=== PATIENT | female | born 1940 | race Caucasian/White ===

== ENCOUNTER 2016-11-11 11:06 | Outpatient (CLI) | payer MEDICARE, OTHER ==
[2015-12-03 08:42] VITALS: BP 122/78
--- NOTE | 2016-11-11 14:24 | Diagnostic Imaging Report ---
MAKAYLA MORSE [facility] [address] [facility] [address] [place], [place]. [address] Report Submission Date: Nov 11, 2016 12:02:44 PM CDT Patient Study Name: PATRICIA GARG Date: Nov 11, 2016 11:20:10 AM CDT Modality Type: CT\SR Gender: F Description: CT BRAIN W/O CONTRAST : 40 Institution: [facility] Physician: MAKAYLA MORSE Examination: CT head without contrast History: Increased confusion Comparison exam: None available Technique: Noncontrast head CT protocol. Findings: Ventricles and sulci are prominent. Cerebrocerebellar parenchyma demonstrates periventricular low attenuation consistent with small vessel disease. Extensive regions of low attenuation extending into the high left parietal lobe. No evidence for parenchymal hemorrhage. No evidence for mass or mass effect. No midline shift. No extra axial fluid collections. Partial visualization of the paranasal sinuses, mastoid air cells, orbits, skull and scalp without gross regularity. Impression: Advanced age related changes. No acute appearing parenchymal process by CT sensitivity. No hemorrhage. If no prior CT brain examinations are available to confirm stability the presumed age related parenchymal processes, MRI recommended to further evaluate. Electronically signed on Nov 11, 2016 12:02:44 PM CDT by: Willian TSE
== END 2016-11-11 11:07 ==
LOC: RAD 11:06
PROVIDERS: ATTEND Family Medicine
DX: R41.0 Disorientation, unspecified (principal)
CPT/HCPCS: 70450

== ENCOUNTER 2017-06-17 09:45 | Emergency (ER) | payer MEDICARE, OTHER ==
[2017-06-17 10:42] LABS: BASOPHILS % 0.5 (0.0-1.5); EOSINOPHILS % 2.7 % (0.0-6.8); MEAN CORPUSCULAR VOLUME 88.9 fl (80.0-100.0); MONOCYTES % 6.1 % (0.0-11.0); NEUTROPHILS # 3.3 # k/uL (1.4-7.7)
[2017-06-17 10:56] VITALS: BP 111/75
[2017-06-17 11:55] LABS: eGFR (African) > 60; eGFR (Non-African) > 60
--- NOTE | 2017-06-17 12:17 | ED Physician Documentation ---
General Adult - HISTORIAN Historian: patient - HPI Stated Complaint: R hip pain Chief Complaint: General Adult Further Comments: yes (76 year old female patient sent in from [facility] for evaluation, staff reports patient will not bear weight or walk on right hip; fall last week. Report poor po intake, increased confusion.) - ROS CONST: weakness EYES/ENT: none CVS/RESP: none GI/: none MS/SKIN/LYMPH: other (hip pain) NEURO/PSYCH: other (Patient is poor medical collector due to dementia. ) - PAST HX Past History: other (vascular dementia, COPD, difficulty walking/gait disturbance, seizures) Other History: CVA Allergies/Adverse Reactions: Allergies Allergy/AdvReac Type Severity Reaction Status Date / Time acetaminophen Allergy Verified 06/17/17 10:56 codeine Allergy Verified 06/17/17 10:56 Penicillins Allergy Verified 11/21/15 14:26 aspirin AdvReac Nausea/Vomi Verified 11/21/15 14:26 ting lorazepam [From Ativan] AdvReac Hallucinati Verified 11/21/15 14:26 ons Home Medications: Ambulatory Orders Medication Instructions Recorded Atenolol 50 mg PO D 11/21/15 Clopidogrel Bisulfate [Plavix] 75 mg PO QD 11/21/15 Levetiracetam [Keppra] 1 tab PO BID 11/21/15 Lovastatin 40 mg PO D 11/21/15 Mirtazapine [Remeron] 7.5 mg PO DAILY 06/17/17 - SOCIAL HX Smoking History: non-smoker - FAMILY HX Family History: No - VITAL SIGNS Vital Signs: Vital Signs Temp Pulse Resp BP Pulse Ox 85 17 111/75 91 L 06/17/17 12:00 06/17/17 09:45 06/17/17 09:45 06/17/17 12:00 - REVIEWED ASSESSMENTS Nursing Assessment Reviewed: Yes Vitals Reviewed: Yes Progress - Progress Progress: Call from Dr Kelly before patient arrived. Patient has urine cytology pending for hematuria. Patient is currently on levaquin. On arrival, patient c/o right hip pain, states she got up this morning and walked to breakfast. [facility] staff reports patient is a full assist and out of bed with jahaira lift. Patient sleeping on stretcher during most of ER stay. Easily awakens, cooperative and pleasant. Work up completed; call to Dr Kelly updated on lab and xray. No additional orders, continue all medications, return to [facility]. ED Results Lab/Radiology - Lab Results Lab Results: Lab Results 06/17/17 06/17/17 10:30 10:30 WBC 6.60 K/ul K/ul (4.00-12.00) RBC 4.87 M/ul M/ul (3.90-5.20) Hgb 13.2 g/dL g/dL (12.0-16.0) Hct 43.3 % % (34.5-46.5) MCV 88.9 fl fl (80.0-100.0) MCH 27.0 pg L pg (28.0-34.0) MCHC 30.4 g/dL g/dL (30.0-36.0) RDW 14.6 % H % (11.3-14.3) Plt Count 255 K/mm3 K/mm3 (130-400) Neut % (Auto) 50.5 % % (39.0-79.0) Lymph % (Auto) 37.4 % % (16.0-50.0) [place] % (Auto) 6.1 % % (0.0-11.0) Eos % (Auto) 2.7 % % (0.0-6.8) Baso % (Auto) 0.5 (0.0-1.5) Neut # (Auto) 3.3 # k/uL # k/uL (1.4-7.7) Lymph # (Auto) 2.5 # k/uL # k/uL (0.6-4.0) [place] # (Auto) 0.4 # k/uL # k/uL (0.0-0.9) Eos # (Auto) 0.2 # k/uL # k/uL (0.0-0.6) Baso # (Auto) 0.0 # k/uL # k/uL (0.0-0.5) Reactive Lymphs % 2.8 % % (0.0-5.0) Reactive Lymphs # 0.2 # k/uL # k/uL (0.0-0.8) Sodium 136 mmol/L mmol/L (136-145) Potassium 3.9 mmol/L mmol/L (3.5-5.1) Chloride 100 mmol/L mmol/L (98-107) Carbon Dioxide 27 mmol/L mmol/L (22-30) BUN 19 mg/dL H mg/dL (7-17) Creatinine 0.90 mg/dL mg/dL (0.52-1.04) Estimated Creat Clear 56 Est GFR ( Amer) > 60 (60 - ) Est GFR (Non-Af Amer) > 60 (60 - ) Glucose 84 mg/dL mg/dL (74-106) Calcium 8.8 mg/dL mg/dL (8.4-10.2) Total Bilirubin 0.7 mg/dL mg/dL (0.2-1.3) AST 32 U/L U/L (15-46) ALT 38 U/L U/L (13-69) Alkaline Phosphatase 80 U/L U/L (38-126) Total Protein 6.7 g/dL g/dL (6.3-8.2) Albumin 3.4 g/dL L g/dL (3.5-5.0) - Orders Orders: ED Orders Category Date Time Status Continuous EKG monitoring Q30M Care 06/17/17 09:59 Active Continuous Pulse Oximetry Q30M Care 06/17/17 09:[address] IV Lock 1T Care 06/17/17 09:59 Active RT HIP 2VIEW COMPLETE [RAD] Stat Exams 06/17/17 Taken CBC/PLATELET/DIFF Stat Lab 06/17/17 10:30 Completed CMP Stat Lab 06/17/17 10:30 Completed UA W/MICRO IF INDICATED Stat Lab 06/17/17 09:59 Ordered General Adult Physical Exam - PHYSICAL EXAM GENERAL APPEARANCE: [id number] N EENT: eye inspection normal, KALEB RESPIRATORY: no resp distress, chest non-tender, breath sounds normal CVS: reg rate & rhythm, heart sounds normal, equal pulses, no murmur, no gallop , PMI nml, no JVD, no friction rub, 24 ABDOMEN: soft, no organomegaly, normal bowel sounds, no abdominal bruit, no distension BACK: normal inspection SKIN: normal color, warm/dry, NR, INT, PAL, DR EXTREMITIES: no evidence of injury, no edema, other (mild edema in right hip; patient will not lift right leg off bed. ) NEURO: motor nml (BAUTISTA, gait not assessed), sensation nml, other (Oriented to person and place only; pleasant mood, follows commands, BAUTISTA x 4, ) Discharge Clincal Impression: Right hip pain Failure to thrive Qualifiers: Failure to thrive age range: in adult Qualified Code(s): R62.7 - Adult failure to thrive Hematuria Qualifiers: Hematuria type: unspecified type Qualified Code(s): R31.9 - Hematuria, unspecified Referrals: Peg Kelly MD [Primary Care Provider] - 2 Days Additional Instructions: Continue all medications and treatments per Dr Kelly. Condition: Stable Disposition: 01 HOME, SELF-CARE Decision to Admit: NO Decision Time: 12:41
[2017-06-17 13:12] LABS: APPEARANCE,URINE CLOUDY (CLEAR); COLOR,URINE YELLOW (YELLOW)
[2017-06-17 13:16] LABS: OCCULT BLOOD,URINE 2+ (NEGATIVE)
[2017-06-17 13:17] LABS: UROBILINOGEN URINE 0.2 Eu (0.2-1.0)
--- NOTE | 2017-06-17 18:16 | Diagnostic Imaging Report ---
MONI DELACRUZ (FRONT OFFICE MANAGER) - ER [facility] [address] [facility].[address] [address] Report Submission Date: June 17, 2017 11:20:09 AM CDT Patient Study Name: PATRICIA GARG Date: June 17, 2017 10:38:43 AM CDT Modality Type: DX Gender: F Description: PELVIS : 40 Institution: [facility] Physician: MONI DELACRUZ (FRONT OFFICE MANAGER) - ER Examination: Plain film pelvis/hips History: RT HIP WITH PELVIS, PAIN IN RT HIP AFTER FALL Comparison exams: None provided Findings: 4 views of the pelvis and hips demonstrates diffuse osteopenia. Left hip replacement. No evidence for fracture or loosening. Right hip cortical margins without evidence for disruption. No dislocation. Superior and inferior pubic rami and iliac wings are without abnormality. Advanced lumbar degenerative changes. Vascular stents. Impression: Osteopenia and articular degenerative changes. Left hip replacement. No acute appearing osseous process. Electronically signed on June 17, 2017 11:20:09 AM CDT by: Willian TSE
== END 2017-06-17 13:20 | disposition home or self-care (01) ==
LOC: ED 09:45
DX: R31.9 Hematuria, unspecified (principal); R62.7 Adult failure to thrive; M25.551 Pain in right hip
CPT/HCPCS: 51701; 73502; 80053; 81002; 85025; 99284; S1016

== ENCOUNTER 2017-06-19 05:02 | Emergency (ER) | payer MEDICARE, OTHER ==
[2017-06-19 05:27] LABS: BASOPHILS % 0.5 (0.0-1.5); EOSINOPHILS % 3.1 % (0.0-6.8); MEAN CORPUSCULAR HEMOGLOBIN 27.7 pg (28.0-34.0); NEUTROPHILS # 3.2 # k/uL (1.4-7.7)
[2017-06-19 05:43] LABS: eGFR (African) > 60; eGFR (Non-African) > 60
--- NOTE | 2017-06-19 06:02 | ED Physician Documentation ---
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 Spontaneously started vaginally bleeding. Hematuria last week, urine for cytology in process. Onset: minutes (30) Severity: moderate Location of Pain: other (none, painless hematuria) Further Comments: no - Vaginal Bleeding Abnormal Bleeding Started: 06/19/17 Compared to Menstrual Periods: heavier (jacobo of bleeding, dark red), passing clots LNMP (Last Known Menstrual Period): 06/09/97 Sexual History: inactive - Associated Symptoms Urinary Symptoms: blood in urine - ROS CONST: none GI/: denies: nausea, vomiting, decreased appetite, diarrhea, black stools, bloody stools CVS/RESP: none EYES/ENT: none NEURO/PSYCH: other (dementia) MS/SKIN/LYMPH: none - PAST HX Past History: other (dementia, cva, depression) Other History: other (recent fall and hematuria last week) Surgeries/Procedures: none Immunizations: referred to PCP Allergies/Adverse Reactions: Allergies Allergy/AdvReac Type Severity Reaction Status Date / Time acetaminophen Allergy Verified 06/19/17 06:00 codeine Allergy Verified 06/19/17 06:00 Penicillins Allergy Verified 06/19/17 06:00 aspirin AdvReac Nausea/Vomi Verified 06/19/17 06:00 ting lorazepam [From Ativan] AdvReac Hallucinati Verified 06/19/17 06:00 ons Home Medications: Ambulatory Orders Medication Instructions Recorded Atenolol 50 mg PO D 11/21/15 Clopidogrel Bisulfate [Plavix] 75 mg PO QD 11/21/15 Levetiracetam [Keppra] 1 tab PO BID 11/21/15 Lovastatin 40 mg PO D 11/21/15 Mirtazapine [Remeron] 7.5 mg PO DAILY 06/17/17 - SOCIAL HX Smoking History: quit greater than 1 year Alcohol Use: none Drug Use: none - FAMILY HX Family History: none - VITAL SIGNS Vital Signs: Vital Signs Temp Pulse Resp BP Pulse Ox 110 H 18 137/99 94 06/19/17 05:05 06/19/17 05:05 06/19/17 05:05 06/19/17 05:05 - REVIEWED ASSESSMENTS Nursing Assessment Reviewed: Yes Vitals Reviewed: Yes Progress - Results/Orders Results/Orders: cbc, cmp, ua, pt/ptt/inr, ct abdomen and pelvis with contrast ordered - Progress Progress: pt given 500 cc bolus NS in ER Critical Care Note - Critical Care Note Total Time (mins): 0 ED Results Lab/Radiology - Lab Results Lab Results: Lab Results 06/19/17 06/19/17 06/19/17 05:20 05:20 05:20 WBC 6.80 K/ul K/ul (4.00-12.00) RBC 4.85 M/ul M/ul (3.90-5.20) Hgb 13.4 g/dL g/dL (12.0-16.0) Hct 43.1 % % (34.5-46.5) MCV 89.0 fl fl (80.0-100.0) MCH 27.7 pg L pg (28.0-34.0) MCHC 31.1 g/dL g/dL (30.0-36.0) RDW 14.7 % H % (11.3-14.3) Plt Count 260 K/mm3 K/mm3 (130-400) Neut % (Auto) 46.3 % % (39.0-79.0) Lymph % (Auto) 42.9 % % (16.0-50.0) [place] % (Auto) 5.0 % % (0.0-11.0) Eos % (Auto) 3.1 % % (0.0-6.8) Baso % (Auto) 0.5 (0.0-1.5) Neut # (Auto) 3.2 # k/uL # k/uL (1.4-7.7) Lymph # (Auto) 2.9 # k/uL # k/uL (0.6-4.0) [place] # (Auto) 0.3 # k/uL # k/uL (0.0-0.9) Eos # (Auto) 0.2 # k/uL # k/uL (0.0-0.6) Baso # (Auto) 0.0 # k/uL # k/uL (0.0-0.5) Reactive Lymphs % 2.2 % % (0.0-5.0) Reactive Lymphs # 0.2 # k/uL # k/uL (0.0-0.8) PT 10.9 Seconds Seconds (9.4-11.6) INR 1.04 (0.9-1.2) APTT 27.5 Seconds Seconds (24.5-32.8) Sodium 135 mmol/L L mmol/L (136-145) Potassium 4.2 mmol/L mmol/L (3.5-5.1) Chloride 99 mmol/L mmol/L (98-107) Carbon Dioxide 28 mmol/L mmol/L (22-30) BUN 20 mg/dL H mg/dL (7-17) Creatinine 1.00 mg/dL mg/dL (0.52-1.04) Estimated Creat Clear 48 Est GFR ( Amer) > 60 (60 - ) Est GFR (Non-Af Amer) > 60 (60 - ) Glucose 96 mg/dL mg/dL (74-106) Calcium 8.8 mg/dL mg/dL (8.4-10.2) Total Bilirubin 0.8 mg/dL mg/dL (0.2-1.3) AST 31 U/L U/L (15-46) ALT 39 U/L U/L (13-69) Alkaline Phosphatase 87 U/L U/L (38-126) Total Protein 6.6 g/dL g/dL (6.3-8.2) Albumin 3.3 g/dL L g/dL (3.5-5.0) - Radiology Radiology Impressions: ct abd/pelvis shows fluid collection in pelvis ? ovarian cyst - Orders Orders: ED Orders Category Date Time Status Place IV Lock 1T Care 06/19/17 05:[address] ABD & PELVIS W/ CON Stat Exams 06/19/17 Ordered CBC/PLATELET/DIFF Routine Lab 06/19/17 05:20 Completed CMP Routine Lab 06/19/17 05:20 Completed PT-INR Routine Lab 06/19/17 05:20 Completed PTT Routine Lab 06/19/17 05:20 Completed URINALYSIS Routine Lab 06/19/17 05:14 Ordered 0.9 % Sodium Chloride [Normal Saline] 500 ml Med 06/19/17 05:13 Active IV NOW Female Urogenital Problems - EXAM General Appearance: no acute distress, alert EENT: eye inspection normal, ENT inspection normal, pharynx normal, no signs of dehydration, KALEB, no nystagmus, TM's nml Neck: nml inspection Respiratory: no resp. distress, breath sounds nml CVS: reg rate & rhythm, heart sounds normal, equal pulses Abdomen: soft, non-tender, no distention Rectal: other (stool normal color and consitency) Pelvic: external exam nml, severe (urethral bleeding - dark red 150 cc total drained). No: vaginal discharge Back: non-tender, painless ROM. No: vertebral point-tendernes, CVA tenderness Skin: color nml, no rash, warm,dry. No: cyanosis, diaphoresis, pallor, rash Extremities: non-tender, normal range of motion, no evidence of injury, no edema Neuro: motor nml, sensation nml, other (demented) Discharge Clincal Impression: Hematuria Qualifiers: Hematuria type: gross Qualified Code(s): R31.0 - Gross hematuria Referrals: Peg Kelly MD [Primary Care Provider] - 2 Days Comments: Case discussed with [facility]fr[facility]keeping[facility]la[facility] at [place] who has spoken with Dr. Muller who accepts pt. in transfer with Urology consult. Condition: Stable Disposition: 02 XFER [id number]-TRM HOSP Decision to Admit: NO Decision Time: 08:07
[2017-06-19 06:16] LABS: APPEARANCE,URINE TURBID (CLEAR); COLOR,URINE RED (YELLOW)
[2017-06-19 06:17] LABS: OCCULT BLOOD,URINE 3+ (NEGATIVE); UROBILINOGEN URINE 0.2 Eu (0.2-1.0)
--- NOTE | 2017-06-19 06:51 | Diagnostic Imaging Report ---
DHAVAL CALVIN [facility] [address] [facility] [address] [place], [place]. [address] Report Submission Date: June 19, 2017 6:43:39 AM CDT Patient Study Name: PATRICIA GARG Date: June 19, 2017 6:13:49 AM CDT Modality Type: CT\SR Gender: F Description: CT ABD PELVIS W/ CON : 40 Institution: [facility] Physician: DHAVAL CALVIN HISTORY: 76-year-old female with abnormal vaginal bleeding. COMPARISON: None available TECHNIQUE: Helical CT images of the abdomen and pelvis were performed with 89 ml Omnipaque-300 IV contrast. Sagittal and coronal reformatted images were obtained. FINDINGS: CT abdomen: There are emphysematous changes of the lung bases. There is severe atrophy of the right kidney. The liver, spleen, pancreas, left kidney, gallbladder, and adrenal glands are unremarkable. No abdominal aortic aneurysm. There are thick calcific and soft atherosclerotic plaques in the abdominal aorta and major branches CT pelvis: No abnormal bowel dilatation, free air, free fluid, or suspicious adenopathy. The appendix is not dilated. There is a Roberson catheter in the urinary bladder. There is fecal retention throughout the colon, especially rectum. The uterus is not well visualized secondary to extensive beam hardening artifact from the patient's left total hip arthroplasty. 12 cm homogeneous fluid collection in the left pelvis presumably represents a left ovarian cyst. There are left common and external iliac artery stents. There is some degree of narrowing of the right common iliac artery. There is diffuse high grade narrowing of the right common iliac artery. There is advanced lumbar degenerative disc disease and lumbar levoscoliosis. IMPRESSION: 1. Emphysema. 2. Severe right renal atrophy. 3. Extensive atherosclerotic vascular disease with stenting of the left common and external iliac arteries; and significant stenosis of the right external iliac artery. 4. 12 cm fluid collection in the left pelvis likely represents an ovarian cyst. Recommend follow-up pelvic ultrasound, especially as the uterus cannot be visualized here secondary to beam-hardening artifact from the patient's left total hip arthroplasty. 5. Fecal retention in the colon suggestive of constipation. Electronically signed on June 19, 2017 6:43:39 AM CDT by: Gerardo TSE
[2017-06-19] MEDS: 0.9 % SODIUM CHLORIDE 500 ML IV ONE (06:56)
[2017-06-19] MEDS: SILVER NITRATE APPLICATOR STICK TP SCH (06:57)
[2017-06-19 08:56] VITALS: BP 122/85
== END 2017-06-19 08:50 | disposition short-term general hospital (02) ==
LOC: ED 05:02
DX: R31.0 Gross hematuria (principal)
CPT/HCPCS: 51702; 74177; 80053; 81002; 85025; 85610; 85730; J7060; 96360; 99285; Q9967; S1016